=== PATIENT | female | born 1945 | race Caucasian/White ===

== ENCOUNTER → 2016-10-19 | Outpatient (CLI) | payer MEDICARE ==
--- NOTE | 2016-10-20 07:50 | XR ---
EXAM TYPE: LUMBAR SPINE X RAY SERIES COMPARISON: NONE HISTORY: Pain FINDINGS: Alignment is anatomic. The pedicles are intact. The transverse processes are intact. There is no s pondylolysis or spondylolisthesis. Severe Degenerative disc disease L5-S1 with facet arthropathy. Mil d degenerative disc disease at remaining levels with more moderate disease at T12-L1. There is a 8 mm calcification overlying the lower pole left kidney. IMPRESSION: 1. Multilevel degenerative disc disease with most marked findings at L5-S1. 2. Left renal stone
== END | disposition home or self-care (01) ==
LOC: RADXRYALE 08:39
PROVIDERS: ATTEND Internal Medicine
DX: M51.37 Other intervertebral disc degeneration, lumbosacral region (principal)
CPT/HCPCS: 72110

== ENCOUNTER → 2022-03-06 | Outpatient (CLI) | payer MEDICARE ==
--- NOTE | 2022-03-06 10:16 | XR ---
EXAMINATION TYPE: XR ribs RT w pa chest xray DATE OF EXAM: 03/06/2022 CLINICAL HISTORY: Chest and right-sided rib pain after strain injury. TECHNIQUE: Single frontal view of the chest is obtained. Frontal and oblique images of the right-side d ribs are obtained. COMPARISON: None FINDINGS: There is no suspicious focal air space opacity, pleural effusion, or pneumothorax seen. Mi ld to moderate biapical pleural/parenchymal scarring. The cardiac silhouette size is within normal li mits. The osseous structures are intact. Dedicated images of the right-sided ribs show no acute displaced fractures. Overlying soft tissue is unremarkable. IMPRESSION: 1. No acute cardiopulmonary process. 2. No acute displaced right-sided rib fractures.
== END | disposition home or self-care (01) ==
LOC: RADXRYALE 09:21
PROVIDERS: ATTEND Internal Medicine
DX: R07.81 Pleurodynia (principal); S29.012A Strain of muscle and tendon of back wall of thorax, initial encounter; R07.9 Chest pain, unspecified